=== PATIENT | male | born 1985 | race Caucasian/White ===

== ENCOUNTER 2018-06-29 12:28 | Emergency (ER) | payer MEDICAID, OTHER ==
[~2018-06-29] VITALS: Ht 182.9 cm; Wt 79.0 kg
[2018-06-29 12:44] VITALS: BP 121/74
[2018-06-29] MEDS ORDERED: morphine 4 MG/ML inj SYRINge IM ONE (13:05)
[2018-06-29] MEDS ORDERED: HYDR-3965 PO (13:48)
[2018-06-29] MEDS ORDERED: CYCL-1 PO (13:48)
== END 2018-06-29 14:06 | disposition home or self-care (01) ==
LOC: ER 12:33
DX: M54.5 Low back pain (principal); X50.0XXA Overexertion from strenuous movement or load, initial encounter; Y93.89 Activity, other specified; Y92.69 Other specified industrial and construction area as the place of occurrence of the external cause; Y99.8 Other external cause status
CPT/HCPCS: 96372; 99283; J2270